=== PATIENT | female | born 1955 | race Caucasian/White ===

== ENCOUNTER 2020-04-29 18:51 | Inpatient (IN) | payer SELFPAY ==
[~2020-04-29] VITALS: Ht 165.1 cm; Wt 140.0 kg
[~2020-04-29 18:51] MED LIST: LISINOPRIL2.5 MG OR; LORTAB 5 OR; PENICILLN VK500 MG OR
--- NOTE | 2020-04-29 18:55 | NUR ---
PT TO ROOM VIA W/C.
--- NOTE | 2020-04-29 19:30 | NUR ---
JEANCARLOS SENT HOME WITH SPOUSE BOUBACAR.
[2020-04-29 19:37] LABS: HEMATOCRIT 37.2 % (37.0-47.0); HEMOGLOBIN 11.1 g/dl (12.0-16.0); IMMATURE GRANULOCYTES 0.3 % (0.0-5.0); MEAN CELL VOLUME 81.8 fL CALC (80.0-100.0); MEAN CORPUSCULAR HGB 24.4 pG CALC (26.0-32.0); MEAN CORPUSCULAR HGB CONC 29.8 g/dL CAL (32.0-36.0); NEUT# 7.61 thou/uL (2.00-7.15); RED BLOOD COUNT 4.55 mill/uL (4.20-5.60); RED CELL DISTRI WIDTH 14.3 % (11.5-15.5)
[2020-04-29 19:43] LABS: URINE BILIRUBIN - DIPSTICK NEGATIVE (NEGATIVE); URINE BLOOD DIPSTICK MODERATE (NEGATIVE); URINE COLOR YELLOW; URINE GLUCOSE - DIPSTICK 250 mg/dL (NEGATIVE); URINE KETONE NEGATIVE (NEGATIVE); URINE LEUK ESTERASE NEGATIVE (NEGATIVE); URINE PH 6.5 (4.5-8.0); URINE PROTEIN - DIPSTICK 100 mg/dL (NEG-TRACE); URINE UROBILINOGEN - DIPSTICK 0.2 E.U./dL (0.2)
[2020-04-29 19:44] LABS: URINE NITRITE - DIPSTICK NEGATIVE (Negative)
--- NOTE | 2020-04-29 19:48 | NUR ---
RT AT [facility], PLACING BIPAP ON
[2020-04-29 19:53] LABS: PROTHROMBIN TIME 10.2 SECONDS (9.0-12.5)
[2020-04-29 19:54] LABS: ALBUMIN 3.8 g/dL (3.2-5.0); ALKALINE PHOSPHATASE 91 u/l (38-126); ANION GAP 8 (6-22 (CALC)); BILIRUBIN, TOTAL 0.6 mg/dL (0.0-1.4); BUN 18 mg/dL (8-23); BUN/CREATININE RATIO 17 (12-20 (CALC)); CARBON DIOXIDE 32 mmol/l (22-30); CHLORIDE 100 mmol/l (95-108); CREATININE 1.1 mg/dL (0.5-1.0); GFR 50 ML/MIN (>=60 (CALC)); GFR FOR AFR.AMER. > 60 ML/MIN (>=60 (CALC)); POTASSIUM 4.1 mmol/l (3.5-5.1); SGOT/AST 16 u/l (9-36); SODIUM 135 mmol/l (137-146); TOTAL PROTEIN 7.2 g/dL (6.3-8.2)
--- NOTE | 2020-04-29 20:06 | NUR ---
PATIENT STATES SHE IS FEELING BETTER. CONTINUING TO MONITOR CLOSELY.
--- NOTE | 2020-04-29 20:32 | NUR ---
REPORT CALLED TO JACKIE GAMBOA IN SBAR FORMAT. ALL QUESTIONS ANSWERED.
[2020-04-29 21:18] VITALS: BP 160/90
--- NOTE | 2020-04-29 21:30 | NUR ---
PATIENT BROUGHT UP VIA STRECHTER WITH RILEY. PATIENT ON BIPAP. RESP EVEN AND UNLABORED. NO S/S OF DISTRESS NOTED. BLE EDEMA NOTED, WOUNDS PRESENT R LOWER LEG PHOTOS TAKEN. IV INFUSING ABX. PATIENT ORIENTED TO ROOM, BED, AND CALL LIGHT. FALL AND SAFTEY PRECAUTIONS TAKEN. PLAN OF CARE DISCUSSED. PATIENT INFROEMD TO CALL WITH ANY QUESTIONS OR CONCERNS. CALLED AND UPDATED ON PATIENT CONDITION. PATIENT INFORMED STAFF TO RELEASE CODE NUMBER TO .
[2020-04-29 21:33] VITALS: BP 163/75
[2020-04-29 21:48] VITALS: BP 158/80
[2020-04-29 23:00] VITALS: BP 155/71
--- NOTE | 2020-04-29 23:28 | NUR ---
PATIENT RESTING WITH EYES CLOSED. BIPAP IN PLACE. NO S/S OF DISTRESS NOTED. FALL AND SAFTEY PRECAUTIONS IN PLACE.
[2020-04-30] VITALS (13 sets, daily range): BP systolic 136–167; BP diastolic 63–88
--- NOTE | 2020-04-30 02:00 | NUR ---
PATIENT RESTING WITH EYES CLOSED. RESP EVEN AND UNLABORED, BIPAP IN PLACE . NO S/S OF DISTRESS NOTED. FALL AND SAFTEY PRECAUTIONS IN PLACE.
[2020-04-30 04:41] LABS: HEMATOCRIT 32.9 % (37.0-47.0); HEMOGLOBIN 9.8 g/dl (12.0-16.0); IMMATURE GRANULOCYTES 0.3 % (0.0-5.0); MEAN CELL VOLUME 81.4 fL CALC (80.0-100.0); MEAN CORPUSCULAR HGB 24.3 pG CALC (26.0-32.0); MEAN CORPUSCULAR HGB CONC 29.8 g/dL CAL (32.0-36.0); NEUT# 7.96 thou/uL (2.00-7.15); RED BLOOD COUNT 4.04 mill/uL (4.20-5.60); RED CELL DISTRI WIDTH 14.4 % (11.5-15.5)
[2020-04-30 05:17] LABS: ALKALINE PHOSPHATASE 70 u/l (38-126); ANION GAP 7 (6-22 (CALC)); BILIRUBIN, TOTAL 0.6 mg/dL (0.0-1.4); BUN 18 mg/dL (8-23); BUN/CREATININE RATIO 20 (12-20 (CALC)); CARBON DIOXIDE 29 mmol/l (22-30); CHLORIDE 102 mmol/l (95-108); CREATININE 0.9 mg/dL (0.5-1.0); GFR > 60 ML/MIN (>=60 (CALC)); GFR FOR AFR.AMER. > 60 ML/MIN (>=60 (CALC)); POTASSIUM 4.3 mmol/l (3.5-5.1); SGOT/AST 15 u/l (9-36); SODIUM 134 mmol/l (137-146)
[2020-04-30 05:19] LABS: ALBUMIN 2.8 g/dL (3.2-5.0); TOTAL PROTEIN 5.6 g/dL (6.3-8.2)
--- NOTE | 2020-04-30 06:24 | NUR ---
WEANED PT OFF OF BIPAP TO 3LPM NC. DELISA WELL. RN AWARE. SOFTWARE LICENSING EXECUTIVE TO MONITOR. PT STATES SHE IS FEELING BETTER.
--- NOTE | 2020-04-30 06:45 | NUR ---
REPORT RECEIVED FROM COOPER MEJIA. CARE ASSUMED.
--- NOTE | 2020-04-30 07:00 | NUR ---
PT RESTING IN BED AWAKE. PT IS ALERT AND ORIENTED X3. SHIFT ASSESSMENT COMPLETED AT THIS TIME. IV PATENT X1. CALL LIGHT IN REACH. WILL CONTINUE TO MONITOR.
--- NOTE | 2020-04-30 07:45 | NUR ---
PT ASSISTED UP TO BSC AT THIS TIME.
--- NOTE | 2020-04-30 08:05 | NUR ---
PT HAD LARGE BROWN BM. PT CLEANSED AND ASSISTED TO RECLINER FOR AM MEAL. PT TOLERATED WELL.
--- NOTE | 2020-04-30 08:30 | NUR ---
DR PUENTE AT BEDSIDE AT THIS TIME.
--- NOTE | 2020-04-30 09:45 | NUR ---
REPORT CALLED TO MICHELLE MEJIA ON MED SURG
--- NOTE | 2020-04-30 09:58 | NUR ---
PT TO MED SURG VIA WHEELCHAIR ACCOMPANIED BY NURSE. PT TOLERATED WELL.
--- NOTE | 2020-04-30 10:00 | NUR ---
PATIENT RECEIVED FROM ICU AT THIS TIME. REPORT GIVEN TO THIS NURSE FROM FRED MEJIA. PATIENT WAS ORIENTED TO NEW ROOM AND SURROUNDINGS AT THIS TIME. PATIENT ALERT AND ORIENTED X 3 . PATIENT NOTED TO HAVE BILATERAL EDEMA IN LOWER EXTREMITIES NON-PITTING. BILATERAL LEGS ARE HARD TO TOUCH AND WARM AND DRY RIGHT LEG HAS JOSE G AREAS WITH FLUID FILLED SAC X 1 SMALL IN SIZE AND ANTOHER SMALL JOSE G AREA AND PATIENT STATES THAT IS FROM A CACTUS PLANT SHE HAS AND SHE RAN HER LEG ACROSSED IT. PATIENT'S BILATERAL FEET HAVE CRUSTED "ANT BITES" IN MULTIPLE AREA'S THAT ARE HEALING. PATIENT STATED SHE STEPPED IN A [place] A FEW DAYS AGO. PATIENTS SIDERAILS ARE UP X 2 AND CALL LIGHT IS WITHIN REACH AND WELL PERSONAL ITEMS. PATIENT EDUCATED ON ROOM SAFETY AND REMINDED TO USE CALL LIGHT IF SHE NEEDS ASSISTANCE. PATIENT VERBALIZES UNDERSTANDING.
--- NOTE | 2020-04-30 15:54 | NUR ---
PATIENT REQUESTING TYLENONL AT THIS TIME FOR A HEADACHE. PATIENT GIVEN 650MG AT THIS TIME PATIENT STATES HER PAIN LEVEL IS A "4" OUT OF A PAIN SCALE OF 0-10.
--- NOTE | 2020-04-30 16:32 | NUR ---
PATIENT SITTING UP IN CHAIR AT THIS TIME. DENEIS ANY NEEDS AT THIS TIME. CALL LIGHT WITHIN REACH. TELE MONITOR IN PLACE AND BEING MONITORED BY ED. SIDERAILS UP ON BED X 2
[2020-05-01] VITALS: BP 145/71
--- NOTE | 2020-05-01 00:33 | NUR ---
PT RESTING QUIETLY IN BED, NO COMPLAINTS VOICED AT THIS TIME. NEW IV STARTED EARLIER BY ON SHIFT NURSE, #22 LFA, FLUSHES EASILY. PT DENIES PAIN AT THIS TIME. BREATHING EVEN AND UNLABORED, HOB ELEVATED TO EASE IN BREATHING. DENIES SOB WHEN HOB IS ELEVATED. BED IN LOWEST POSITION, CALL LIGHT WITHIN REACH. WILL MONITOR.
--- NOTE | 2020-05-01 03:14 | NUR ---
PT RESTING QUIETLY AT THIS TIME. C/O HEADACHE, MEDICATED WITH TYLENOL, WILL MONITOR FOR EFFEDCTIVENESS. BED IN LOWEST POSITION, CALL LIGHT WITHIN REACH. WILL MONITOR.
[2020-05-01 03:53] VITALS: BP 148/83
[2020-05-01 05:38] LABS: HEMOGLOBIN 10.6 g/dl (12.0-16.0); IMMATURE GRANULOCYTES 0.5 % (0.0-5.0); MEAN CELL VOLUME 80.5 fL CALC (80.0-100.0); MEAN CORPUSCULAR HGB 24.4 pG CALC (26.0-32.0); MEAN CORPUSCULAR HGB CONC 30.3 g/dL CAL (32.0-36.0); NEUT# 8.74 thou/uL (2.00-7.15); RED BLOOD COUNT 4.35 mill/uL (4.20-5.60); RED CELL DISTRI WIDTH 14.2 % (11.5-15.5)
[2020-05-01 05:41] LABS: CREATININE 1.3 mg/dL (0.5-1.0); MAGNESIUM 1.4 mg/dL (1.6-2.3); POTASSIUM 4.1 mmol/l (3.5-5.1)
--- NOTE | 2020-05-01 07:30 | NUR ---
PATIENT UP IN CHAIR AT THIS TIME. PATIENT DENIES ANY PAIN AND STATED "I'M GOING HOME TODAY". BROKER IN CHARGE DONE AT THIS TIME SEE INTERVENTIONS. LUNG JACKSON ARE CLEAR. PAREDES PATENT AND INTACT AND DRAINING YELLOW URINE AT THIS TIME. SIDERAILS ARE UP ON BED X 2 CALL LIGHT AND PERSONAL ITEMS WITHIN REACH.
[2020-05-01 07:35] VITALS: BP 133/56
--- NOTE | 2020-05-01 08:55 | NUR ---
PAREDES D/C AT THIS TIME. PAREDES DRAINED 2000ML OF CLEAR YELLOW URINE AT THIS TIME. PATIENT ADVISED WHEN SHE FEELS THE NEED TO URINATE TO USE CALL LIGHT AND CALL FOR ASSISTANCE.
--- NOTE | 2020-05-01 09:15 | NUR ---
PNEUMONIA SHOT GIVEN IN LEFT DELTOID AT THIS TIME. PATIENT TOLERATED WELL AND EDUCATION SUPPLIED REGARDING SIGNS AND SYMPTOMS OF SITE INFECTION. PATIENT VERBALIZES UNDERSTANDING OF EDUCATION. PATIENT ADVISED IF SHE HAS ANY ISSUSE TO CONTACT NURSE IMMEDIATELY. PATIENT DID VOID 100 ML AFTER PAREDES REMOVED.
[2020-05-01 10:53] VITALS: BP 161/54
[2020-05-01] MEDS ORDERED: MEDDOSEPAK PO (11:02)
[2020-05-01] MEDS ORDERED: METFORMIN500 M2 PO (11:02)
[2020-05-01] MEDS ORDERED: ZITHROMAX250 MG PO (11:02)
[2020-05-01] MEDS ORDERED: PROAIR HFA108 MCG/AC IN (11:02)
[2020-05-01] MEDS ORDERED: LISINOP/HCTZ1 TAB PO (11:02)
--- NOTE | 2020-05-01 11:33 | NUR ---
PATIENT REMAINS UP IN CHAIR AT THIS TIME. PATIENT STATES SHE IS URINATING WITHOUT PAIN OR DISCOMFORT. PATIENT DENEIS ANY PAIN OR NEEDS AT THIS TIME. CALL LIGHT AND PERSONAL ITEMS ARE WITHIN REACH.
--- NOTE | 2020-05-01 12:00 | NUR ---
PATIENT UP IN CHAIR EATHING LUNCH AT THIS TIME. PATIENT DENIES ANY NEEDS TELE MONITOR IN PLACE AND BEING MONITORED BY ED. CALL LIGHT AND PERSONAL ITEMS WITHIN REACH.
--- NOTE | 2020-05-01 12:44 | NUR ---
PATIENT D/C AT THIS TIME. PATIENT VERBALIZES UNDERSTANDING OF DISCHARGE INSTRUCTIONS AT THIS TIME.
--- NOTE | 2020-05-01 15:25 | NUR ---
Discharge instructions given. Patient verbalizes understanding of same. Discharged in stable condition via [facility] to Home with *Other. All belongings sent with pt.
--- NOTE | 2020-05-03 11:42 | NUR ---
Pneumonia post discharge follow up call completed today, 05/03/20. Pt states she is doing very well, breathing is much improved. Pt. states she is still urinating frequently due to Lasix. All discharge medications prescribed have been obtained and patient is taking without issue. Follow up appointment has not been made yet. Pt. is waiting for paperwork from hospital for financial assistance. She will complete paperwork when received and is also contacting another agency for financial assistance. Pt has no questions or concerns at this time. Encouraged to contact hospital if she has future needs or concerns.
== END 2020-05-01 15:26 | disposition home or self-care (01) | DRG 293 ==
LOC: ED 18:51 → ED-I 19:35 → ED 20:25 → ICU 20:26 → MS2 20:26
PROVIDERS: Emergency Medicine; ADMIT Internal Medicine; ATTEND Internal Medicine
PROC: 0T9B70Z Drainage of Bladder with Drainage Device, Via Natural or Artificial Opening (ICD-10-PCS; principal; 2020-04-29)
PROC: 5A09357 Assistance with Respiratory Ventilation, Less than 24 Consecutive Hours, Continuous Positive Airway Pressure (ICD-10-PCS; 2020-04-29)
PROC: 3E0234Z Introduction of Serum, Toxoid and Vaccine into Muscle, Percutaneous Approach (ICD-10-PCS; 2020-05-01)
DX: I11.0 Hypertensive heart disease with heart failure (principal); I50.9 Heart failure, unspecified; R09.02 Hypoxemia; E11.65 Type 2 diabetes mellitus with hyperglycemia; J44.9 Chronic obstructive pulmonary disease, unspecified; F17.200 Nicotine dependence, unspecified, uncomplicated; T38.3X6A Underdosing of insulin and oral hypoglycemic [antidiabetic] drugs, initial encounter; T46.5X6A Underdosing of other antihypertensive drugs, initial encounter; Z91.128 Patient's intentional underdosing of medication regimen for other reason; Z23 Encounter for immunization; Z20.822 Contact with and (suspected) exposure to COVID-19
CPT/HCPCS: J3475